=== PATIENT | female | born 1955 | race Two or more races ===

== ENCOUNTER 2023-06-16 05:46 | Day surgery (SDC) | payer OTHER ==
[~2023-06-16] VITALS: Ht 154.9 cm; Wt 59.0 kg
[~2023-06-16 05:46] MED LIST: ATACAND32 MG PO; LIPITOR20 MG PO
== END 2023-06-16 16:25 | disposition home or self-care (01) ==
LOC: CIR.AMB 05:46
PROVIDERS: ATTEND Colon & Rectal Surgery
DX: N81.6 Rectocele (principal); K59.09 Other constipation; Z20.822 Contact with and (suspected) exposure to COVID-19; I10 Essential (primary) hypertension